=== PATIENT | female | born 1990 | race Caucasian/White ===

== ENCOUNTER 2016-09-07 22:19 | Emergency (ER) | payer BC, OTHER ==
[2016-09-07 22:38] VITALS: O2SAT 100
--- NOTE | 2016-09-07 22:46 | ED.PDOC ---
History of Present Illness - General Chief Complaint: Abdominal Pain Stated Complaint: abd pain Time Seen by Provider: 09/07/16 22:22 Source: patient Exam Limitations: no limitations - History of Present Illness Initial Comments: the patient is a 26-year-old female presenting to the emergency room secondary to lateral abdominal and periumbilical pain after grabbing her child and pulling whose misbehaving. The patient has had intermittent periumbilical pains over the last couple of years. On exam she does have a small periumbilical hernia. Abdominal exam shows no definite palpable masses. There is no rebound or peritoneal signs. She is not having any vaginal bleeding. There was no blood abdominal trauma. Timing/Duration: 4-6 hours Severity: mild Improving Factors: immobilization Worsening Factors: movement Associated Symptoms: denies symptoms Allergies/Adverse Reactions: Allergies NO KNOWN ALLERGY Allergy (Verified 02/11/16 20:07) Home Medications: Ambulatory Orders Implanon SC DAILY 09/30/15 Naproxen [Naprosyn] 500 mg PO BID PRN #15 tab 09/30/15 Phentermine HCl 37.5 mg PO DAILY 09/30/15 Mupirocin 2 % Oint [Bactroban Oint] 2 % EX BID #1 tube 01/07/16 Sulfamethoxazole-Trimethoprim [Bactrim Ds 800-160 mg] 1 tab PO BID #20 tab 01/06 Sulfa/Trimeth 800/160 (Ds) Tab [Bactrim DS Tab] 1 ea PO BID #14 tab 02/11/16 Review of Systems - Review of Systems Constitutional: States: no symptoms reported EENTM: States: no symptoms reported Respiratory: States: no symptoms reported Cardiology: States: no symptoms reported Gastrointestinal/Abdominal: States: abdominal pain Genitourinary: States: no symptoms reported Musculoskeletal: States: no symptoms reported Skin: States: no symptoms reported Neurological: States: no symptoms reported Endocrine: States: no symptoms reported All other Systems: No Change from Baseline Past Medical History (General) - Patient Medical History Hx Asthma: No Hx Hypertension: Yes Hx Diabetes: No Hx Gastroesophageal Reflux: No Hx Renal Disease: No Hx Cancer: No Hx Hepatitis C: No Hx MRSA: No Surgical History: no surgical history - Vaccination History Hx Tetanus, Diphtheria Vaccination: No Hx Influenza Vaccination: No Hx Pneumococcal Vaccination: No - Social History Hx Tobacco Use: No Hx Alcohol Use: No Hx Substance Use: Yes Hx Substance Use Treatment: No Hx Depression: No - Female History Patient is a Female of Child Bearing Age (10 -59 yrs old): Yes Hx Last Menstrual Period: 07/11/16 Patient : Yes - "think about 8weeks" Expected Date of Delivery:: 04/17/17 Hx Gestational Age: 8 Family Medical History - Family History Mother Family History: No Known Name: Mary Age (years): 45 Living Status: Still Living Hx Family Hypertension: Yes Hx Family;Other: heart problems. smoker Physical Exam - Physical Exam General Appearance: Alert, Comfortable, No apparent distress Eye Exam: bilateral normal Ears, Nose, Throat: hearing grossly normal Neck: non-tender, full range of motion Respiratory: no respiratory distress, no accessory muscle use Cardiovascular/Chest: normal peripheral pulses, no edema Gastrointestinal/Abdominal: normal bowel sounds, soft, other - palpable umbilical hernia. No palpable masses otherwise. No rebound or peritoneal signs. Rectal Exam: deferred Back Exam: normal inspection, no CVA tenderness, no vertebral tenderness Extremity: normal range of motion, non-tender, normal inspection, no pedal edema , normal capillary refill Neurologic: alert, normal mood/affect, oriented x 3 Skin Exam: normal color Comments: Vital Signs - 24 hr 09/07/16 22:30 Temperature 97.2 F L Pulse Rate [ 82 left] Respiratory 18 Rate Blood Pressure 135/84 [left] O2 Sat by Pulse 100 Oximetry Progress - Progress Progress: 09/07/16 22:46 the patient is a 26-year-old female presenting to the emergency room secondary to abdominal pain after straining. The patient does have an umbilical hernia that is fairly easily reduced. It does cause her some discomfort. She may yet need to have this repaired in the future. ER warnings are given for this. The patient also appears to have had a strain of the abdominal obliques on the left. She can expect to have some soreness for the next week or 2. Tylenol can be used for discomfort. ER warnings were given. Departure - Departure Clinical Impression: Umbilical hernia without obstruction and without gangrene Abdominal muscle strain Qualifiers: Encounter type: initial encounter Qualified Code(s): S39.011A - Strain of muscle, fascia and tendon of abdomen, initial encounter Disposition: Discharge to Home or Self Care Condition: Fair Departure Forms: ED Discharge - Pt. Copy, Patient Portal Self Enrollment Instructions: DI for Abdominal Pain-Adult Diet: regular diet Activity: increase activity as tolerated Referrals: TAMERA ROMO,ELIO Jackson [Primary Care Provider] - 1-2 Weeks Home Medications: Ambulatory Orders Implanon SC DAILY 09/30/15 Naproxen [Naprosyn] 500 mg PO BID PRN #15 tab 09/30/15 Phentermine HCl 37.5 mg PO DAILY 09/30/15 Mupirocin 2 % Oint [Bactroban Oint] 2 % EX BID #1 tube 01/07/16 Sulfamethoxazole-Trimethoprim [Bactrim Ds 800-160 mg] 1 tab PO BID #20 tab 01/06 Sulfa/Trimeth 800/160 (Ds) Tab [Bactrim DS Tab] 1 ea PO BID #14 tab 02/11/16 Additional Instructions: the patient is a 26-year-old female presenting to the emergency room secondary to abdominal pain after straining. The patient does have an umbilical hernia that is fairly easily reduced. It does cause her some discomfort. She may yet need to have this repaired in the future. ER warnings are given for this. The patient also appears to have had a strain of the abdominal obliques on the left. She can expect to have some soreness for the next week or 2. Tylenol can be used for discomfort. ER warnings were given.
[2016-09-07 22:57] VITALS: BP 131/85; TEMP 97.5
== END 2016-09-07 22:55 | disposition home or self-care (01) ==
LOC: ER 22:19
DX: O26.891 Other specified pregnancy related conditions, first trimester (principal); K42.9 Umbilical hernia without obstruction or gangrene; S39.011A Strain of muscle, fascia and tendon of abdomen, initial encounter; I10 Essential (primary) hypertension; Z79.899 Other long term (current) drug therapy; Z3A.08 8 weeks gestation of pregnancy; X50.9XXA Other and unspecified overexertion or strenuous movements or postures, initial encounter

== ENCOUNTER 2016-10-01 09:40 | Emergency (ER) | payer OTHER ==
[2016-10-01 09:56] VITALS: TEMP 97.6
--- NOTE | 2016-10-01 10:19 | ED.PDOC ---
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 The patient had a colposcopy done 2 days ago with biopsies performed. Silver nitrate was used as the hemostatic. she started having some spotting 24 hours later. She is approximately 11 weeks . no passage of any tissue. No cramping. She is too early for movement. Timing/Duration: 24 hours Severity: mild Improving Factors: nothing Worsening Factors: nothing Associated Symptoms: denies symptoms Allergies/Adverse Reactions: Allergies NO KNOWN ALLERGY Allergy (Verified 02/11/16 20:07) Home Medications: Ambulatory Orders Implanon SC DAILY 09/30/15 Naproxen [Naprosyn] 500 mg PO BID PRN #15 tab 09/30/15 Phentermine HCl 37.5 mg PO DAILY 09/30/15 Mupirocin 2 % Oint [Bactroban Oint] 2 % EX BID #1 tube 01/07/16 Sulfamethoxazole-Trimethoprim [Bactrim Ds 800-160 mg] 1 tab PO BID #20 tab 01/06 Sulfa/Trimeth 800/160 (Ds) Tab [Bactrim DS Tab] 1 ea PO BID #14 tab 02/11/16 Review of Systems - Review of Systems Constitutional: States: no symptoms reported EENTM: States: no symptoms reported Respiratory: States: no symptoms reported Cardiology: States: no symptoms reported Gastrointestinal/Abdominal: States: no symptoms reported Genitourinary: States: see HPI Musculoskeletal: States: no symptoms reported Skin: States: no symptoms reported Neurological: States: no symptoms reported Endocrine: States: no symptoms reported All other Systems: No Change from Baseline Past Medical History (General) - Patient Medical History Hx Seizures: Yes - silent seizures Hx Asthma: No Hx Hypertension: Yes Hx Diabetes: No Hx Gastroesophageal Reflux: No Hx Renal Disease: No Hx Cancer: No Hx Hepatitis C: No Hx MRSA: No - Vaccination History Hx Tetanus, Diphtheria Vaccination: No Hx Influenza Vaccination: No Hx Pneumococcal Vaccination: No - Social History Hx Tobacco Use: No Hx Alcohol Use: No Hx Substance Use: Yes Hx Substance Use Treatment: No Hx Depression: No - Female History Patient is a Female of Child Bearing Age (10 -59 yrs old): Yes Hx Last Menstrual Period: 07/11/16 Patient : Yes Expected Date of Delivery:: 04/22/17 Hx Gestational Age: 8 Family Medical History - Family History Mother Family History: No Known Name: Mary Age (years): 45 Living Status: Still Living Hx Family Hypertension: Yes Hx Family;Other: heart problems. smoker Physical Exam - Physical Exam General Appearance: Alert, Comfortable, No apparent distress Eye Exam: bilateral normal Ears, Nose, Throat: hearing grossly normal, normal ENT inspection, normal pharynx Neck: non-tender, full range of motion, supple Respiratory: no respiratory distress, no accessory muscle use Cardiovascular/Chest: normal peripheral pulses, no edema, other - regular rate Peripheral Pulses: radial,right: 2+, radial,left: 2+, dorsalis pedis,right: 2+, dorsalis pedis,left: 2+ Gastrointestinal/Abdominal: non tender, soft Rectal Exam: deferred, other - pelvic exam shows very small clots in the vaginal vault. The cervical os is closed. No evidence of any arterial or active bleeding at this time. Back Exam: normal inspection, no CVA tenderness, no vertebral tenderness Extremity: normal range of motion, non-tender, normal inspection, no pedal edema , normal capillary refill Skin Exam: normal color Comments: Vital Signs - 24 hr 10/01/16 09:54 Temperature 97.6 F Pulse Rate [ 92 H left brachial] Respiratory 16 Rate Blood Pressure 129/92 [left brachial] O2 Sat by Pulse 95 Oximetry Progress - Progress Progress: 10/01/16 10:20 the patient is a 26-year-old female at 11 weeks gestational age presenting with vaginal spotting after a cervical biopsy a few days ago. Cursory ultrasound performed by ma shows what appears to be an intact with a heart rate in the 150s and good movement with adequate fluid. Pelvic exam shows no evidence of arterial bleeding or dilation or thinning of the cervix. No further active management is anticipated at this time. Spotting should resolve within 48 hour. ER warnings are given for any worsening. She should give her sales & service associate a call on Sunday. Departure - Departure Clinical Impression: Bleeding of cervix ICD-10 Supporting Text: bleeding from procedure site fromcolposcopy with biopsies Disposition: Discharge to Home or Self Care Condition: Fair Departure Forms: ED Discharge - Pt. Copy, Patient Portal Self Enrollment Instructions: Biopsy Diet: regular diet Activity: other - Pelvic rest Referrals: TAMERA ROMO,ELIO Jackson [Primary Care Provider] - 1-2 Weeks Home Medications: Ambulatory Orders Implanon SC DAILY 09/30/15 Naproxen [Naprosyn] 500 mg PO BID PRN #15 tab 09/30/15 Phentermine HCl 37.5 mg PO DAILY 09/30/15 Mupirocin 2 % Oint [Bactroban Oint] 2 % EX BID #1 tube 01/07/16 Sulfamethoxazole-Trimethoprim [Bactrim Ds 800-160 mg] 1 tab PO BID #20 tab 01/06 Sulfa/Trimeth 800/160 (Ds) Tab [Bactrim DS Tab] 1 ea PO BID #14 tab 02/11/16 Additional Instructions: the patient is a 26-year-old female at 11 weeks gestational age presenting with vaginal spotting after a cervical biopsy a few days ago. Cursory ultrasound performed by ma shows what appears to be an intact with a heart rate in the 150s and good movement with adequate fluid. Pelvic exam shows no evidence of arterial bleeding or dilation or thinning of the cervix. No further active management is anticipated at this time. Spotting should resolve within 48 hour. ER warnings are given for any worsening. She should give her sales & service associate a call on Sunday.
[2016-10-01 10:54] VITALS: BP 128/88; O2SAT 96
== END 2016-10-01 10:40 | disposition home or self-care (01) ==
LOC: ER 09:40
DX: O20.8 Other hemorrhage in early pregnancy (principal); Z3A.11 11 weeks gestation of pregnancy; Z98.890 Other specified postprocedural states

== ENCOUNTER 2016-10-27 22:48 | Emergency (ER) | payer OTHER ==
[2016-10-27 23:17] VITALS: TEMP 91.7
--- NOTE | 2016-10-27 23:55 | ED.PDOC ---
History of Present Illness - General Chief Complaint: Respiratory Problem Stated Complaint: sore throat and cough Time Seen by Provider: 10/27/16 23:52 Source: patient, RN notes reviewed, Vital Signs reviewed Exam Limitations: no limitations - History of Present Illness Comments: Patient comes in with 3 days of cough and sore throat. Now her R ribs are hurting when she coughs. No fever or chills. Ears are burning. No SOB or difficulty breathing. Cough is dry. She is 15 weeks so she has only been using cough drops. Timing/Duration: constant - over the past 3 days Cough Quality/Degree: moderate, dry cough Possible Cause: unknown cause Improving Factors: nothing Worsening Factors: nothing Associated Symptoms: chest pain/soreness, cough, earache, sore throat Allergies/Adverse Reactions: Allergies NO KNOWN ALLERGY Allergy (Verified 02/11/16 20:07) Home Medications: Ambulatory Orders Implanon SC DAILY 09/30/15 RX: Naproxen [Naprosyn] 500 mg PO BID PRN #15 tab 09/30/15 RX: Phentermine HCl 37.5 mg PO DAILY 09/30/15 Mupirocin 2 % Oint [Bactroban Oint] 2 % EX BID #1 tube 01/07/16 Sulfamethoxazole-Trimethoprim [Bactrim Ds 800-160 mg] 1 tab PO BID #20 tab 01/06 Sulfa/Trimeth 800/160 (Ds) Tab [Bactrim DS Tab] 1 ea PO BID #14 tab 02/11/16 Review of Systems - Review of Systems Constitutional: States: no symptoms reported. Denies: chills, diaphoresis, fever, malaise EENTM: States: see HPI, ear pain, throat pain. Denies: nose congestion Respiratory: States: cough. Denies: short of breath, stridor, wheezing Cardiology: States: no symptoms reported Gastrointestinal/Abdominal: States: no symptoms reported Musculoskeletal: States: other - R rib pain with coughing Skin: States: no symptoms reported Neurological: States: no symptoms reported. Denies: headache All other Systems: No Change from Baseline Past Medical History (General) - Patient Medical History Hx Seizures: Yes - silent seizures Hx Asthma: No Hx Hypertension: Yes Hx Diabetes: No Hx Gastroesophageal Reflux: No Hx Renal Disease: No Hx Cancer: No Hx Hepatitis C: No Hx MRSA: No Surgical History: no surgical history - Vaccination History Hx Tetanus, Diphtheria Vaccination: No Hx Influenza Vaccination: No Hx Pneumococcal Vaccination: No - Social History Hx Tobacco Use: No Hx Alcohol Use: No Hx Substance Use: Yes Hx Substance Use Treatment: No Hx Depression: No - Female History Patient is a Female of Child Bearing Age (10 -59 yrs old): Yes Hx Last Menstrual Period: 07/16/16 Patient : Yes Expected Date of Delivery:: 03/26/17 Hx Gestational Age: 15 Family Medical History - Family History Mother Family History: No Known Name: Mary Age (years): 45 Living Status: Still Living Hx Family Hypertension: Yes Hx Family;Other: heart problems. smoker Physical Exam - Physical Exam General Appearance: Alert, Comfortable, No apparent distress, Well Developed, Well Groomed, Well Hydrated, Well Nourished ENT Exam: hearing grossly normal, TMs normal, pharyngeal erythema Neck: non-tender, full range of motion, supple, normal inspection Respiratory: lungs clear, normal breath sounds, no respiratory distress, no accessory muscle use Cardiovascular/Chest: regular rate, rhythm, no gallop, no murmur Extremity: normal range of motion, normal inspection Neurologic: alert, normal mood/affect, oriented x 3 Skin Exam: normal color, warm/dry Progress - Results/Orders Results/Orders: Laboratory Tests 10/27/16 23:30 Group A Strep DNA Negative Departure - Departure Clinical Impression: Upper respiratory infection Qualifiers: URI type: unspecified viral URI Qualified Code(s): J06.9 - Acute upper respiratory infection, unspecified; B97.89 - Other viral agents as the cause of diseases classified elsewhere Time of Disposition: 23:58 Disposition: Discharge to Home or Self Care Condition: Good Departure Forms: ED Discharge - Pt. Copy, Patient Portal Self Enrollment Instructions: DI for Viral Upper Respiratory Infection -- Adult Diet: resume usual diet Activity: increase activity as tolerated Referrals: TAMERA ROMO,ELIO Jackson [Primary Care Provider] - 1-2 Weeks Home Medications: Ambulatory Orders Implanon SC DAILY 09/30/15 RX: Naproxen [Naprosyn] 500 mg PO BID PRN #15 tab 09/30/15 RX: Phentermine HCl 37.5 mg PO DAILY 09/30/15 Mupirocin 2 % Oint [Bactroban Oint] 2 % EX BID #1 tube 01/07/16 Sulfamethoxazole-Trimethoprim [Bactrim Ds 800-160 mg] 1 tab PO BID #20 tab 01/06 Sulfa/Trimeth 800/160 (Ds) Tab [Bactrim DS Tab] 1 ea PO BID #14 tab 02/11/16 Additional Instructions: Recommend conservative treatment with OTC Mucinex, Delsym or Benadryl If not resolving in 2 weeks or worsening get rechecked.
[2016-10-28 00:05] VITALS: BP 131/94; O2SAT 96
== END 2016-10-28 00:05 | disposition home or self-care (01) ==
LOC: ER 22:48
DX: O99.89 Other specified diseases and conditions complicating pregnancy, childbirth and the puerperium (principal); J06.9 Acute upper respiratory infection, unspecified; O10.912 Unspecified pre-existing hypertension complicating pregnancy, second trimester; I10 Essential (primary) hypertension; R56.9 Unspecified convulsions; Z79.899 Other long term (current) drug therapy; Z3A.15 15 weeks gestation of pregnancy

== ENCOUNTER 2017-03-11 18:39 | Emergency (ER) | payer OTHER ==
[2017-03-11 19:13] VITALS: BP 133/86; TEMP 99
[2017-03-11] MEDS ORDERED: ACETAMINOPHEN W/COD #3 TAB 1 EA TAB PO ONE (19:22)
--- NOTE | 2017-03-11 19:25 | ED.PDOC ---
History of Present Illness - General Chief Complaint: Back Pain or Injury Stated Complaint: back pain Time Seen by Provider: 03/11/17 18:54 Source: patient, RN notes reviewed, Vital Signs reviewed Exam Limitations: no limitations - History of Present Illness Initial Comments: Patient comes in with c/o mid-back pain all day. She is 34 weeks . Tylenol is not helping her pain today. She will get some back pain off and on but this is the worst that it has been. No radiation of pain. No abdominal pain or contractions. Timing/Duration: 7-24 hours Quality/Severity: moderate, dullness Back Pain Location: T-spine - Lower aspect Back Pain Radiation: other - None Method of Injury/Prior Injury: other - 34 weeks Improving Factors: nothing Worsening Factors: movement Associated Symptoms: denies symptoms Allergies/Adverse Reactions: Allergies NO KNOWN ALLERGY Allergy (Verified 03/11/17 19:13) Home Medications: Ambulatory Orders Implanon SC DAILY 09/30/15 Naproxen [Naprosyn] 500 mg PO BID PRN #15 tab 09/30/15 Phentermine HCl 37.5 mg PO DAILY 09/30/15 Mupirocin 2 % Oint [Bactroban Oint] 2 % EX BID #1 tube 01/07/16 Sulfamethoxazole-Trimethoprim [Bactrim Ds 800-160 mg] 1 tab PO BID #20 tab 01/06 Sulfa/Trimeth 800/160 (Ds) Tab [Bactrim DS Tab] 1 ea PO BID #14 tab 02/11/16 Review of Systems - Review of Systems Constitutional: States: no symptoms reported Respiratory: States: no symptoms reported Cardiology: States: no symptoms reported Gastrointestinal/Abdominal: States: no symptoms reported Genitourinary: States: other - 34 weeks Musculoskeletal: States: back pain - mid-back Skin: States: no symptoms reported Neurological: States: no symptoms reported All other Systems: No Change from Baseline Past Medical History (General) - Patient Medical History Hx Seizures: Yes - silent seizures Hx Asthma: No Hx Hypertension: Yes Hx Diabetes: No Hx Gastroesophageal Reflux: No Hx Renal Disease: No Hx Cancer: No Hx Hepatitis C: No Hx MRSA: No Surgical History: no surgical history - Vaccination History Hx Tetanus, Diphtheria Vaccination: No Hx Influenza Vaccination: No Hx Pneumococcal Vaccination: No - Social History Hx Tobacco Use: No Hx Alcohol Use: No Hx Substance Use: Yes Hx Substance Use Treatment: No Hx Depression: No - Female History Patient is a Female of Child Bearing Age (10 -59 yrs old): Yes Hx Last Menstrual Period: 07/16/16 Patient : Yes Expected Date of Delivery:: 03/26/17 Hx Gestational Age: 34 Family Medical History - Family History Mother Family History: No Known Name: Mary Age (years): 45 Living Status: Still Living Hx Family Hypertension: Yes Hx Family;Other: heart problems. smoker Physical Exam - Physical Exam General Appearance: Alert, Comfortable, No apparent distress, Well Developed, Well Groomed, Well Hydrated, Well Nourished Cardiovascular/Respiratory: regular rate, rhythm, no M/R/G, normal breath sounds , no respiratory distress Gastrointestinal/Abdominal: non tender, soft, other - gravid Back Exam: vertebral tenderness - lower thoracic spine - mild Extremity Exam: no evidence of injury, normal range of motion Neurologic: no motor/sensory deficits, alert, normal mood/affect, oriented x 3 Skin Exam: normal color, warm/dry Comments: Vital Signs 03/11/17 19:07 Temperature 99.0 F Pulse Rate [ 112 H pulse ox] Respiratory 18 Rate Blood Pressure 133/86 [Left Arm] O2 Sat by Pulse 97 Oximetry Heart Tones: 156 Progress - Progress Progress: 03/11/17 19:28 Will give Tylenol #3 PO here and follow up with her OB tomorrow as scheduled for further management. Departure - Departure Clinical Impression: Back pain during Time of Disposition: 19:28 Disposition: Discharge to Home or Self Care Condition: Good Departure Forms: ED Discharge - Pt. Copy, Patient Portal Self Enrollment Instructions: Support Garment May Reduce Back Pain Discomfort During , Common Discomforts and Bodily Changes During Diet: resume usual diet Activity: increase activity as tolerated Referrals: Donovan Stevens MD [Primary Care Provider] - 1-2 Days Home Medications: Ambulatory Orders Implanon SC DAILY 09/30/15 Naproxen [Naprosyn] 500 mg PO BID PRN #15 tab 09/30/15 Phentermine HCl 37.5 mg PO DAILY 09/30/15 Mupirocin 2 % Oint [Bactroban Oint] 2 % EX BID #1 tube 01/07/16 Sulfamethoxazole-Trimethoprim [Bactrim Ds 800-160 mg] 1 tab PO BID #20 tab 01/06 Sulfa/Trimeth 800/160 (Ds) Tab [Bactrim DS Tab] 1 ea PO BID #14 tab 02/11/16
[2017-03-11 19:47] VITALS: O2SAT 99
== END 2017-03-11 19:48 | disposition home or self-care (01) ==
LOC: ER 18:39
DX: O26.893 Other specified pregnancy related conditions, third trimester (principal); M54.9 Dorsalgia, unspecified; O16.3 Unspecified maternal hypertension, third trimester; O99.353 Diseases of the nervous system complicating pregnancy, third trimester; G40.A09 Absence epileptic syndrome, not intractable, without status epilepticus; Z3A.34 34 weeks gestation of pregnancy

== ENCOUNTER → 2017-05-10 | Outpatient (CLI) | payer OTHER ==
--- NOTE | 2017-05-10 15:05 | US ---
EXAM DESCRIPTION: Abdomen,Complete: Ultrasound. CLINICAL HISTORY: CHRONIC VIRAL HEP C COMPARISON: None Available. TECHNIQUE: Transabdominal scannin-dimensional and Doppler modes. FINDINGS: The gallbladder is normal in size, shape, and echogenicity, with no intraluminal stones or sludge. No fluid around the gallbladder. Wall thickness normal. 2.3 mm. Common bile duct caliber 3.1 mm which is within normal limits. No stones in the visualized portion of the duct. Not tender with transducer pressure. The liver demonstrates normal echogenicity; contour of the liver capsule is smooth where seen. No fluid around the liver. Intrahepatic biliary ducts are non-dilated. Craniocaudal dimension in the mid-clavicular axis is 13.8 cm. Pancreas head, body, and tail normal in size and echogenicity. Pancreatic duct is not dilated. Normal Doppler vascularity in the titi hepatis. Abdominal aorta diameter proximal 1.8 cm. Mid 1.4 cm. Distal 1.5 cm. IVC visualized; normal caliber. Spleen normal echogenicity; long axis measurement is 14.5 cm. No fluid in the spleno-renal fossa. Right kidney measures 11.5 x 6.4 x 4.2 cm ; normal mid renal cortical thickness. Echogenicity normal with no hydronephrosis, no large calcifications, and no perinephric fluid. Contour smooth. Vascularity normal. Ureter not visualized. Left kidney measures 11.7 x 5.4 x 4.8 cm ; normal mid renal cortical thickness. Echogenicity normal with no hydronephrosis, no large calcifications, and no perinephric fluid. Contour smooth. Vascularity normal. Ureter not visualized. IMPRESSION: 1. Spleen borderline enlarged. Normal echogenicity. No fluid around the spleen. 2. Normal size and echogenicity of the liver and intrahepatic ducts. No ascites. Normal ultrasound of the gallbladder and common bile duct. Normal ultrasound of the pancreas. 3. Normal ultrasound of the bilateral kidneys. Electronically signed by: Brent Rashid MD 05/10/2017 3:04 PM OUTCOMES MANAGER
== END | disposition home or self-care (01) ==
LOC: US 05-08 13:48
PROVIDERS: ATTEND Pediatrics Pediatric Gastroenterology
DX: B18.2 Chronic viral hepatitis C (principal)

== ENCOUNTER 2017-10-13 23:01 | Emergency (ER) | payer SELFPAY ==
[2017-10-13 23:19] VITALS: TEMP 97.1
[2017-10-13] MEDS ORDERED: KETOROLAC TROMETHAMINE INJ 30 MG/ML VIAL IM ONE (23:30)
[2017-10-13] MEDS ORDERED: ACETAMINOPHEN-CAFF-BUTALBITAL 1 EA TAB PO ONE (23:30)
[2017-10-13] MEDS ORDERED: predniSONE 20 MG TAB PO ONE (23:30)
--- NOTE | 2017-10-14 00:01 | RAD ---
EXAM: Three view(s) of the left knee. INDICATION: Pain. COMPARISON: None. FINDINGS: No acute fracture or dislocation. No large soft tissue swelling. IMPRESSION: 1. No acute fracture. Electronically signed by: Jermain Diaz MD 10/14/2017 12:00 AM CDT Workstation: [id number]
--- NOTE | 2017-10-14 00:17 | ED.PDOC ---
History of Present Illness - General Chief Complaint: Lower Extremity Injury Stated Complaint: left knee pain Time Seen by Provider: 10/13/17 23:30 Source: patient Exam Limitations: no limitations - History of Present Illness Initial Comments: the patient is a 27-year-old female presenting to the emergency room secondary to pain in her left knee that has been present and progressive for the last week. Pain seems to be worse over the anserine bursa and the medial collateral ligament. No locking or popping. No giving out. No history of trauma. No previous problems with the knee. She also has some fullness posteriorly. No palpable cords. No calf pain. No history of any DVT. No obvious outstanding risk for a DVT. She is oxygenating well. No shortness of breath. The knee itself shows some mild swelling over the areain question. No evidence of any overt infection. No history of any gout. Timing/Duration: 1 week Severity: moderate Improving Factors: nothing Worsening Factors: nothing Associated Symptoms: denies symptoms Allergies/Adverse Reactions: Allergies NO KNOWN ALLERGY Allergy (Verified 10/13/17 23:19) Home Medications: Ambulatory Orders Implanon SC DAILY 09/30/15 Naproxen [Naprosyn] 500 mg PO BID PRN #15 tab 09/30/15 Phentermine HCl 37.5 mg PO DAILY 09/30/15 Mupirocin 2 % Oint [Bactroban Oint] 2 % EX BID #1 tube 01/07/16 Sulfamethoxazole-Trimethoprim [Bactrim Ds 800-160 mg] 1 tab PO BID #20 tab 01/06 Sulfa/Trimeth 800/160 (Ds) Tab [Bactrim DS Tab] 1 ea PO BID #14 tab 02/11/16 Tramadol HCl 50 mg PO Q8HR PRN #14 tab 10/14/17 predniSONE [Prednisone] 20 mg PO DAILY #5 tab 10/14/17 Review of Systems - Review of Systems Constitutional: States: no symptoms reported EENTM: States: no symptoms reported Respiratory: States: no symptoms reported Cardiology: States: no symptoms reported Gastrointestinal/Abdominal: States: no symptoms reported Genitourinary: States: no symptoms reported Musculoskeletal: States: see HPI Skin: States: no symptoms reported Neurological: States: no symptoms reported Endocrine: States: no symptoms reported All other Systems: No Change from Baseline Past Medical History (General) - Patient Medical History Hx Seizures: Yes - silent seizures Hx Stroke: No Hx Dementia: No Hx Asthma: No Hx of COPD: No Hx Cardiac Disorders: No Hx Congestive Heart Failure: No Hx Hypertension: Yes Hx Thyroid Disease: No Hx Diabetes: No Hx Gastroesophageal Reflux: No Hx Renal Disease: No Hx Cancer: No Hx of HIV: No Hx Hepatitis C: No Hx MRSA: No - Vaccination History Hx Tetanus, Diphtheria Vaccination: No Hx Influenza Vaccination: No Hx Pneumococcal Vaccination: No - Social History Hx Tobacco Use: No Hx Alcohol Use: No Hx Substance Use: Yes Hx Substance Use Treatment: No Hx Depression: No - Female History Hx Last Menstrual Period: 07/16/16 Patient : Yes Expected Date of Delivery:: 03/26/17 Hx Gestational Age: 34 Family Medical History - Family History Mother Family History: No Known Name: Mary Age (years): 45 Living Status: Still Living Hx Family Hypertension: Yes Hx Family;Other: heart problems. smoker Physical Exam - Physical Exam General Appearance: Alert, Comfortable, No apparent distress Eye Exam: bilateral normal Ears, Nose, Throat: hearing grossly normal Neck: full range of motion Respiratory: no respiratory distress, no accessory muscle use Cardiovascular/Chest: normal peripheral pulses, regular rate, rhythm, no edema Peripheral Pulses: radial,right: 2+, radial,left: 2+, dorsalis pedis,right: 2+, dorsalis pedis,left: 2+, posterior tibialis,right: 2+, posterior tibialis,left: 2+ Gastrointestinal/Abdominal: non tender, soft Rectal Exam: deferred Back Exam: no CVA tenderness, no vertebral tenderness Extremity: normal range of motion, no pedal edema, no calf tenderness, normal capillary refill, other - see history of present illness. Neurologic: no motor/sensory deficits, alert, normal mood/affect, oriented x 3 Skin Exam: normal color Comments: Vital Signs - 24 hr 10/13/17 23:15 Temperature 97.1 F L Pulse Rate [ 88 monitor] Respiratory 18 Rate Blood Pressure 126/84 [Left Arm] O2 Sat by Pulse 99 Oximetry Progress - Progress Progress: 10/14/17 00:19 the patient is a 27-year-old female presenting with left knee pain has been progressive over the last week. She has an anserine bursitis and tenderness to palpation over the medial collateral ligament. X-ray of the knee shows no evidence of dislocation or fracture. The patient is going to be placed on prednisone for the next 5 days as an anti-inflammatory. Additionally she'll be written for some tramadol for pain control. She can take over-the- counter anti-inflammatory such as Aleve or ibuprofen as well. Topical heat may help. It is possible the patient may be developing a Vasquez's cyst. If she continues to have a little bit of pain posteriorly in the knee over the coming weeks then she should see orthopedics for a further evaluation and intervention is necessary. There is no obvious instability of the knee at this time. The patient should plan on following up with her primary care doctor later this week. ER warnings were given. Departure - Departure Clinical Impression: Anserine bursitis Disposition: Discharge to Home or Self Care Condition: Fair Departure Forms: ED Discharge - Pt. Copy, Patient Portal Self Enrollment Instructions: DI for Leg Pain Diet: regular diet Activity: increase activity as tolerated Referrals: Donovan Stevens MD [Primary Care Provider] - 1-2 Weeks Prescriptions: Tramadol HCl 50 mg PO Q8HR PRN #14 tab PRN Reason: Moderate Pain predniSONE [Prednisone] 20 mg PO DAILY #5 tab Home Medications: Ambulatory Orders Implanon SC DAILY 09/30/15 Naproxen [Naprosyn] 500 mg PO BID PRN #15 tab 09/30/15 Phentermine HCl 37.5 mg PO DAILY 09/30/15 Mupirocin 2 % Oint [Bactroban Oint] 2 % EX BID #1 tube 01/07/16 Sulfamethoxazole-Trimethoprim [Bactrim Ds 800-160 mg] 1 tab PO BID #20 tab 01/06 Sulfa/Trimeth 800/160 (Ds) Tab [Bactrim DS Tab] 1 ea PO BID #14 tab 02/11/16 Tramadol HCl 50 mg PO Q8HR PRN #14 tab 10/14/17 predniSONE [Prednisone] 20 mg PO DAILY #5 tab 10/14/17 Additional Instructions: the patient is a 27-year-old female presenting with left knee pain has been progressive over the last week. She has an anserine bursitis and tenderness to palpation over the medial collateral ligament. X-ray of the knee shows no evidence of dislocation or fracture. The patient is going to be placed on prednisone for the next 5 days as an anti-inflammatory. Additionally she'll be written for some tramadol for pain control. She can take over-the- counter anti-inflammatory such as Aleve or ibuprofen as well. Topical heat may help. It is possible the patient may be developing a Vasquez's cyst. If she continues to have a little bit of pain posteriorly in the knee over the coming weeks then she should see orthopedics for a further evaluation and intervention is necessary. There is no obvious instability of the knee at this time. The patient should plan on following up with her primary care doctor later this week. ER warnings were given.
[2017-10-14 00:44] VITALS: BP 118/82; O2SAT 100
== END 2017-10-14 00:30 | disposition home or self-care (01) ==
LOC: ER 23:01
DX: M71.562 Other bursitis, not elsewhere classified, left knee (principal); I10 Essential (primary) hypertension; G40.802 Other epilepsy, not intractable, without status epilepticus
CPT/HCPCS: 73560; J1885; J7512

== ENCOUNTER 2017-11-04 22:18 | Emergency (ER) | payer SELFPAY ==
[2017-11-04 22:34] VITALS: TEMP 98.4
[2017-11-04] MEDS: KETOROLAC TROMETHAMINE INJ 30 MG/ML VIAL IM ONE (22:38)
[2017-11-04] MEDS: predniSONE 20 MG TAB PO ONE (22:39)
[2017-11-04] MEDS: diazePAM 5 MG TAB PO ONE (22:51)
[2017-11-04] MEDS ORDERED: ONDANSETRON ODT 8 MG TAB ONE (23:12)
[2017-11-04] MEDS: ONDANSETRON ODT 8 MG TAB SL ONE (23:13)
[2017-11-04] MEDS: SODIUM CHLORIDE 0.9% 1000ML 1,000 ML IVS ONE (23:37)
[2017-11-05] MEDS: HYDROcodone 7.5MG/APAP 325MG 1 EA TAB PO ONE (00:31)
--- NOTE | 2017-11-05 01:21 | ED.PDOC ---
History of Present Illness - General Chief Complaint: Headache Stated Complaint: headache x's 2 days Time Seen by Provider: 11/04/17 22:22 Source: patient Exam Limitations: no limitations - History of Present Illness Initial Comments: the patient is a 27-year-old female presenting to the emergency room secondary to a headache that is been going on for about 48 hours. Today she is starting to have some nausea along with some auto and phonophobia area but no fever. No altered mental status. No fever. No runny nose. No syncope or near syncope. 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 Clinical exam shows significant spasm of the trapezius muscle on the right extending down from the scalp to approximately T3 and extending about group home up to the point of the shoulder there is no midline tenderness and there is no pain on the left she does have some pain in the right ear area but the ear canal is clear. No meningeal signs. Timing/Duration: 24 hours Severity: moderate Improving Factors: nothing Worsening Factors: nothing Associated Symptoms: malaise, nausea/vomiting Allergies/Adverse Reactions: Allergies NO KNOWN ALLERGY Allergy (Verified 11/04/17 22:33) Home Medications: Ambulatory Orders Implanon SC DAILY 09/30/15 Naproxen [Naprosyn] 500 mg PO BID PRN #15 tab 09/30/15 Phentermine HCl 37.5 mg PO DAILY 09/30/15 Mupirocin 2 % Oint [Bactroban Oint] 2 % EX BID #1 tube 01/07/16 Sulfamethoxazole-Trimethoprim [Bactrim Ds 800-160 mg] 1 tab PO BID #20 tab 01/06 Sulfa/Trimeth 800/160 (Ds) Tab [Bactrim DS Tab] 1 ea PO BID #14 tab 02/11/16 Tramadol HCl 50 mg PO Q8HR PRN #14 tab 10/14/17 predniSONE [Prednisone] 20 mg PO DAILY #5 tab 10/14/17 Ntouxrxbunfpx-Yesx-Stdsebeyfu [Fioricet] 1 ea PO Q8H PRN #21 tab 11/05/17 Cyclobenzaprine HCl [Flexeril] 5 mg PO TID PRN #30 tab 11/05/17 predniSONE [Prednisone] 20 mg PO DAILY #3 tab 11/05/17 Review of Systems - Review of Systems Constitutional: States: malaise EENTM: States: no symptoms reported Respiratory: States: no symptoms reported Cardiology: States: no symptoms reported Gastrointestinal/Abdominal: States: nausea Genitourinary: States: no symptoms reported Musculoskeletal: States: neck pain Skin: States: no symptoms reported Neurological: States: anxiety, headache Endocrine: States: no symptoms reported All other Systems: No Change from Baseline Past Medical History (General) - Patient Medical History Hx Seizures: Yes - silent seizures Hx Stroke: No Hx Dementia: No Hx Asthma: No Hx of COPD: No Hx Cardiac Disorders: No Hx Congestive Heart Failure: No Hx Hypertension: Yes - during Hx Thyroid Disease: No Hx Diabetes: No Hx Gastroesophageal Reflux: No Hx Renal Disease: No Hx Cancer: No Hx of HIV: No Hx Hepatitis C: No Hx MRSA: No - Vaccination History Hx Tetanus, Diphtheria Vaccination: No Hx Influenza Vaccination: No Hx Pneumococcal Vaccination: No - Social History Hx Tobacco Use: No Hx Alcohol Use: No Hx Substance Use: Yes Hx Substance Use Treatment: No Hx Depression: No - Female History Hx Last Menstrual Period: 07/16/16 Patient : Yes Expected Date of Delivery:: 03/26/17 Hx Gestational Age: 34 Family Medical History - Family History Mother Family History: No Known Name: Mary Age (years): 45 Living Status: Still Living Hx Family Hypertension: Yes Hx Family;Other: heart problems. smoker Physical Exam - Physical Exam General Appearance: Alert, No apparent distress Eye Exam: bilateral normal Ears, Nose, Throat: hearing grossly normal, normal ENT inspection Neck: full range of motion, other - see history of present illness Respiratory: lungs clear, normal breath sounds, no respiratory distress, no accessory muscle use Cardiovascular/Chest: normal peripheral pulses, regular rate, rhythm, no edema Peripheral Pulses: radial,right: 2+, radial,left: 2+, dorsalis pedis,right: 2+, dorsalis pedis,left: 2+ Gastrointestinal/Abdominal: non tender, soft Rectal Exam: deferred Back Exam: normal inspection, no CVA tenderness, no vertebral tenderness Extremity: non-tender, normal inspection, no pedal edema, normal capillary refill 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 She was given some IV fluids here along with some pain medications and a muscle relaxer as well as a dose of prednisone. The patient is going to be written for Flexeril for as needed use along with some Fioricet for as needed use for the next couple of days. She will additionally be written for prednisone 20 mg daily for the next 3 days. She does need to use a heat pad and do stretching exercises for her trapezius muscle. ER warnings were given. She should follow up with her primary care doctor in 3-4 days. Departure - Departure Clinical Impression: Tension headache, Trapezius muscle spasm Disposition: Discharge to Home or Self Care Condition: Fair Departure Forms: ED Discharge - Pt. Copy, Patient Portal Self Enrollment Diet: regular diet Activity: increase activity as tolerated Referrals: TAMERA ROMO,ELIO Jakcson [Primary Care Provider] - 1-5 Days Prescriptions: Pxtxdgjldcedj-Yitc-Ftvbmnzaxi [Fioricet] 1 ea PO Q8H PRN #21 tab PRN Reason: Pain Cyclobenzaprine HCl [Flexeril] 5 mg PO TID PRN #30 tab PRN Reason: Muscle Spasms predniSONE [Prednisone] 20 mg PO DAILY #3 tab Home Medications: Ambulatory Orders Implanon SC DAILY 09/30/15 Naproxen [Naprosyn] 500 mg PO BID PRN #15 tab 09/30/15 Phentermine HCl 37.5 mg PO DAILY 09/30/15 Mupirocin 2 % Oint [Bactroban Oint] 2 % EX BID #1 tube 01/07/16 Sulfamethoxazole-Trimethoprim [Bactrim Ds 800-160 mg] 1 tab PO BID #20 tab 01/06 Sulfa/Trimeth 800/160 (Ds) Tab [Bactrim DS Tab] 1 ea PO BID #14 tab 02/11/16 Tramadol HCl 50 mg PO Q8HR PRN #14 tab 10/14/17 predniSONE [Prednisone] 20 mg PO DAILY #5 tab 10/14/17 Guxnblmosujkf-Zqll-Teeyhiynxq [Fioricet] 1 ea PO Q8H PRN #21 tab 11/05/17 Cyclobenzaprine HCl [Flexeril] 5 mg PO TID PRN #30 tab 11/05/17 predniSONE [Prednisone] 20 mg PO DAILY #3 tab 11/05/17 Additional Instructions: the patient is a 27-year-old female presenting to the emergency room secondary to a tension headache that has been worsening over the last 2 days secondary to a right sided trapezius spasm. She was given some IV fluids here along with some pain medications and a muscle relaxer as well as a dose of prednisone. The patient is going to be written for Flexeril for as needed use along with some Fioricet for as needed use for the next couple of days. She will additionally be written for prednisone 20 mg daily for the next 3 days. She does need to use a heat pad and do stretching exercises for her trapezius muscle. ER warnings were given. She should follow up with her primary care doctor in 3-4 days.
[2017-11-05 01:41] VITALS: BP 139/80; O2SAT 100
== END 2017-11-05 01:42 | disposition home or self-care (01) ==
LOC: ER 22:18
DX: G44.209 Tension-type headache, unspecified, not intractable (principal); M62.838 Other muscle spasm
CPT/HCPCS: J1885; J7030; J7512

== ENCOUNTER 2018-06-11 19:33 | Emergency (ER) | payer SELFPAY ==
[2018-06-11] MEDS ORDERED: CHLORHEXIDINE GLUCONATE 4 % 15 ML UD TOP ONE ×2 (20:26→22:11)
[2018-06-11 20:38] VITALS: TEMP 98.1
[2018-06-11] MEDS ORDERED: LIDOCAINE 1% 10 ML VIAL INJ ONE (21:40)
[2018-06-11] MEDS ORDERED: NEOMYCIN-BACITRACIN-POLYMYXIN 0.9 GM UD TOP ONE (22:43)
--- NOTE | 2018-06-11 22:43 | ED.PDOC ---
History of Present Illness - General Chief Complaint: Laceration Stated Complaint: left thumb laceration Time Seen by Provider: 06/11/18 22:10 Source: patient Exam Limitations: no limitations - History of Present Illness Initial Comments: WAS CUTTING A POTATO. Timing/Duration: just prior to arrival Severity: moderate Location: hands Improving Factors: nothing Worsening Factors: movement Associated Symptoms: denies symptoms Allergies/Adverse Reactions: Allergies NO KNOWN ALLERGY Allergy (Verified 11/04/17 22:33) Home Medications: Ambulatory Orders Implanon SC DAILY 09/30/15 Naproxen [Naprosyn] 500 mg PO BID PRN #15 tab 09/30/15 Phentermine HCl 37.5 mg PO DAILY 09/30/15 Mupirocin 2 % Oint [Bactroban Oint] 2 % EX BID #1 tube 01/07/16 Sulfamethoxazole-Trimethoprim [Bactrim Ds 800-160 mg] 1 tab PO BID #20 tab 01/07/16 Sulfa/Trimeth 800/160 (Ds) Tab [Bactrim DS Tab] 1 ea PO BID #14 tab 02/11/16 Tramadol HCl 50 mg PO Q8HR PRN #14 tab 10/14/17 predniSONE [Prednisone] 20 mg PO DAILY #5 tab 10/14/17 Gimsmyrtklidi-Tfgy-Jurdudhojl [Fioricet] 1 ea PO Q8H PRN #21 tab 11/05/17 Cyclobenzaprine HCl [Flexeril] 5 mg PO TID PRN #30 tab 11/05/17 predniSONE [Prednisone] 20 mg PO DAILY #3 tab 11/05/17 Review of Systems - Review of Systems Constitutional: States: no symptoms reported EENTM: States: no symptoms reported Respiratory: States: no symptoms reported Cardiology: States: no symptoms reported Gastrointestinal/Abdominal: States: no symptoms reported Genitourinary: States: no symptoms reported Musculoskeletal: States: no symptoms reported Skin: States: see HPI, lesions Neurological: States: no symptoms reported Endocrine: States: no symptoms reported All other Systems: Reviewed and Negative Past Medical History (General) - Patient Medical History Hx Seizures: Yes - silent seizures Hx Stroke: No Hx Dementia: No Hx Asthma: No Hx of COPD: No Hx Cardiac Disorders: No Hx Congestive Heart Failure: No Hx Hypertension: Yes - during Hx Thyroid Disease: No Hx Diabetes: No Hx Gastroesophageal Reflux: No Hx Renal Disease: No Hx Cancer: No Hx of HIV: No Hx Hepatitis C: No Hx MRSA: No - Vaccination History Hx Tetanus, Diphtheria Vaccination: No Hx Influenza Vaccination: No Hx Pneumococcal Vaccination: No - Social History Hx Tobacco Use: No Hx Alcohol Use: No Hx Substance Use: Yes Hx Substance Use Treatment: No Hx Depression: No - Female History Hx Last Menstrual Period: 07/16/16 Patient : Yes Expected Date of Delivery:: 03/26/17 Hx Gestational Age: 34 Family Medical History - Family History Mother Family History: No Known Name: Mary Age (years): 45 Living Status: Still Living Hx Family Hypertension: Yes Hx Family;Other: heart problems. 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 Skin Problem Location: upper extremities Skin Character: other - laceration Lymphatic: no adenopathy Procedures - Laceration/Wound Repair Left Distal Volar Finger Wound Length (cm): 2.8 Wound's Depth, Shape: superficial, flap - CURVILINEAR FLAP Wound Explored: no foreign body removed Irrigated w/ Saline (cc's): 250 Betadine Prep?: Yes Anesthesia: 1% Lidocaine Volume Anesthetic (cc's): 10 Wound Debrided: minimal Wound Repaired With: sutures Suture Size/Type: 3:0, prolene Number of Sutures: 1 - UNINTERRUPTED Layer Closure?: No Sterile Dressing Applied?: Yes Departure - Departure Clinical Impression: Pain of left thumb Laceration of thumb Qualifiers: Encounter type: initial encounter Damage to nail status: without damage Foreign body presence: without foreign body Laterality: left Qualified Code(s): S61.012A - Laceration without foreign body of left thumb without damage to nail, initial encounter Disposition: Discharge to Home or Self Care Condition: Good Departure Forms: ED Discharge - Pt. Copy, Patient Portal Self Enrollment Diet: resume usual diet Activity: increase activity as tolerated Referrals: TAMERA ROMO,ELIO Jackson [Primary Care Provider] - 1-2 Weeks Home Medications: Ambulatory Orders Implanon SC DAILY 09/30/15 Naproxen [Naprosyn] 500 mg PO BID PRN #15 tab 09/30/15 Phentermine HCl 37.5 mg PO DAILY 09/30/15 Mupirocin 2 % Oint [Bactroban Oint] 2 % EX BID #1 tube 01/07/16 Sulfamethoxazole-Trimethoprim [Bactrim Ds 800-160 mg] 1 tab PO BID #20 tab 01/07/16 Sulfa/Trimeth 800/160 (Ds) Tab [Bactrim DS Tab] 1 ea PO BID #14 tab 02/11/16 Tramadol HCl 50 mg PO Q8HR PRN #14 tab 10/14/17 predniSONE [Prednisone] 20 mg PO DAILY #5 tab 10/14/17 Ulbvfdwsynglr-Bije-Hnplxbzbun [Fioricet] 1 ea PO Q8H PRN #21 tab 11/05/17 Cyclobenzaprine HCl [Flexeril] 5 mg PO TID PRN #30 tab 11/05/17 predniSONE [Prednisone] 20 mg PO DAILY #3 tab 11/05/17 Additional Instructions: Twice per day, please clean with soap and water, apply antibiotic ointment, and cover with a bandaid until healed. Please return or see your doctor to remove the sutures in 12-14 days.
[2018-06-11] MEDS ORDERED: cloNIDine HCL 0.1 MG TAB ONE (22:56)
[2018-06-11] MEDS ORDERED: cloNIDine HCL 0.1 MG TAB PO ONE (22:56)
[2018-06-11 23:40] VITALS: BP 142/87; O2SAT 100
== END 2018-06-11 23:40 | disposition home or self-care (01) ==
LOC: ER 19:33
DX: S61.012A Laceration without foreign body of left thumb without damage to nail, initial encounter (principal); W45.8XXA Other foreign body or object entering through skin, initial encounter; Y92.9 Unspecified place or not applicable; Y93.G1 Activity, food preparation and clean up

== ENCOUNTER 2018-11-25 17:36 | Emergency (ER) | payer SELFPAY ==
[2018-11-25] MEDS ORDERED: AMOXICILLIN & POT CLAVULANATE 875 MG TAB PO ONE (17:45)
[2018-11-25 17:49] VITALS: BP 144/85; TEMP 98.4; O2SAT 99
--- NOTE | 2018-11-25 17:59 | RAD ---
EXAM DESCRIPTION: Hand,Right 2 Views CLINICAL HISTORY: pain lateral hand after punch COMPARISON: None. TECHNIQUE: 2 views right FINDINGS: I see no bone joint or soft tissue abnormality. IMPRESSION: Normal right hand. Electronically signed by: Yan Ludwig MD 11/25/2018 5:56 PM CDT
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
== END 2018-11-25 18:25 | disposition home or self-care (01) ==
LOC: ER 17:36
DX: L03.113 Cellulitis of right upper limb (principal); S63.91XA Sprain of unspecified part of right wrist and hand, initial encounter; S61.411A Laceration without foreign body of right hand, initial encounter; Y04.0XXA Assault by unarmed brawl or fight, initial encounter; Y92.9 Unspecified place or not applicable

== ENCOUNTER 2019-04-08 21:20 | Emergency (ER) | payer SELFPAY ==
[2019-04-08] MEDS ORDERED: KETOROLAC TROMETHAMINE INJ 30 MG/ML VIAL IM ONE (21:33)
[2019-04-08] MEDS ORDERED: CYCLOBENZAPRINE HCL 10 MG TAB PO ONE (21:34)
--- NOTE | 2019-04-08 21:36 | ED.PDOC ---
History of Present Illness - General Chief Complaint: Neck Injury/Pain Stated Complaint: neck pain Time Seen by Provider: 04/08/19 21:33 - History of Present Illness Initial Comments: this is 29 year female with no medical problems patient presents with upper back and neck pain for the past 3 days, no trauma but patient tends to sleep laying on her right side, and this is the site of the pain. no fever, no chill, no rigidity Allergies/Adverse Reactions: Allergies NO KNOWN ALLERGY Allergy (Verified 11/04/17 22:33) Home Medications: Ambulatory Orders Amoxicillin & Pot Clavulanate [Augmentin Tab] 875 mg PO BID #10 tab 11/25/18 Acetaminophen W/ Codeine [Tylenol W/ CODEINE #3] 1 ea PO Q6HRS 4 Days #20 04/08/19 Cyclobenzaprine HCl [Flexeril] 10 mg PO Q6HR 4 Days #20 tab 04/08/19 Review of Systems - Review of Systems Constitutional: States: no symptoms reported EENTM: States: no symptoms reported Respiratory: States: no symptoms reported Cardiology: States: no symptoms reported Gastrointestinal/Abdominal: States: no symptoms reported Genitourinary: States: no symptoms reported Musculoskeletal: States: back pain, neck pain Skin: States: no symptoms reported, see HPI, change in color Neurological: States: no symptoms reported Endocrine: States: no symptoms reported Hematologic/Lymphatic: States: no symptoms reported Past Medical History (General) - Patient Medical History Hx Seizures: Yes - silent seizures Hx Stroke: No Hx Dementia: No Hx Asthma: No Hx of COPD: No Hx Cardiac Disorders: No Hx Congestive Heart Failure: No Hx Hypertension: Yes - during Hx Thyroid Disease: No Hx Diabetes: No Hx Gastroesophageal Reflux: No Hx Renal Disease: No Hx Cancer: No Hx of HIV: No Hx Hepatitis C: No Hx MRSA: No - Vaccination History Hx Tetanus, Diphtheria Vaccination: No Hx Influenza Vaccination: No Hx Pneumococcal Vaccination: No - Social History Hx Tobacco Use: No Hx Alcohol Use: No Hx Substance Use: Yes Hx Substance Use Treatment: No Hx Depression: No - Female History Hx Last Menstrual Period: 07/16/16 Patient : Yes Expected Date of Delivery:: 03/26/17 Hx Gestational Age: 34 Family Medical History - Family History Mother Family History: No Known Name: Mary Age (years): 45 Living Status: Still Living Hx Family Hypertension: Yes Hx Family;Other: heart problems. 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 patient doesnt appear toxic. patient will be discharge home with tylenol #3 and flexeril. Return to the er if any fever, chills nuchal rigidity. Alternate between Ice and warm Departure - Departure Clinical Impression: Muscle spasm Disposition: Discharge to Home or Self Care Departure Forms: ED Discharge - Pt. Copy, Patient Portal Self Enrollment Instructions: DI for Neck Pain, DI for Cervical Muscle Strain, Muscle Spasms (DC) Referrals: TAMERA ROMO,ELIO Jackson [Primary Care Provider] - 1-2 Weeks Prescriptions: Acetaminophen W/ Codeine [Tylenol W/ CODEINE #3] 1 ea PO Q6HRS 4 Days #20 Cyclobenzaprine HCl [Flexeril] 10 mg PO Q6HR 4 Days #20 tab Home Medications: Ambulatory Orders Amoxicillin & Pot Clavulanate [Augmentin Tab] 875 mg PO BID #10 tab 11/25/18 Acetaminophen W/ Codeine [Tylenol W/ CODEINE #3] 1 ea PO Q6HRS 4 Days #20 04/08/19 Cyclobenzaprine HCl [Flexeril] 10 mg PO Q6HR 4 Days #20 tab 04/08/19 Additional Instructions: alternate between ice and warm, return to the er if fever, chills, neck pain, nuchal rigidity or tingling sensation in the upper extremities
[2019-04-08 21:38] VITALS: O2SAT 99
[2019-04-08 22:14] VITALS: BP 160/98; TEMP 98.2
== END 2019-04-08 21:59 | disposition home or self-care (01) ==
LOC: ER 21:20
DX: M62.838 Other muscle spasm (principal)

== ENCOUNTER 2020-02-10 21:27 | Emergency (ER) | payer SELFPAY ==
[2020-02-10 22:00] VITALS: TEMP 97.1
[2020-02-10] MEDS ORDERED: IPRATROPIUM/ALBUTEROL 3 ML VIAL NEB ONE (22:14)
[2020-02-10] MEDS ORDERED: cloNIDine HCL 0.1 MG TAB PO ONE (22:15)
--- NOTE | 2020-02-10 22:16 | ED.PDOC ---
History of Present Illness - General Chief Complaint: Respiratory Problem Stated Complaint: sob, cough and congestion Time Seen by Provider: 02/10/20 22:02 Source: patient Exam Limitations: no limitations - History of Present Illness Initial Comments: WORKS AT [employer]. 2 D AGO, STARTED HAVING COUGH AND CHEST CONGESTION. YESTERDAY, DEVELOPED SOB, ALONG WITH COUGH AND CONGESTION. COVID TEST YESTERDAY WAS NEG. BP IN ER 164/116. PT STATES WAS RX'D PROPRANOLOL FOR HTN FROM URGENT CARE BUT HAS BEEN OFF BP MEDS FOR 1 MONTH. DOES NOT HAVE A PCP. SMOKES 1/2 PPD. Timing/Duration: getting worse Severity: moderate Activities at Onset: none Possible Cause: unknown cause Improving Factors: nothing Worsening Factors: nothing Associated Symptoms: cough Respiratory Risk Factors: no cause identified Allergies/Adverse Reactions: Allergies NO KNOWN ALLERGY Allergy (Verified 11/04/17 22:33) Home Medications: Ambulatory Orders Amoxicillin & Pot Clavulanate [Augmentin Tab] 875 mg PO BID #10 tab 11/25/18 Acetaminophen W/ Codeine [Tylenol W/ CODEINE #3] 1 ea PO Q6HRS 4 Days #20 04/08/19 Cyclobenzaprine HCl [Flexeril] 10 mg PO Q6HR 4 Days #20 tab 04/08/19 Albuterol Inhaler [Ventolin Hfa Inhaler] 2 puff INH Q6H PRN #1 inh 02/10/20 Amoxicillin & Pot Clavulanate [Augmentin] 875 mg PO BID #20 tab 02/10/20 Chlorthalidone 25 mg PO DAILY #30 tab 02/10/20 Review of Systems - Review of Systems Constitutional: Denies: chills, fever EENTM: States: nose congestion. Denies: ear pain, throat pain Respiratory: States: cough, short of breath. Denies: wheezing Cardiology: Denies: chest pain, palpitations Gastrointestinal/Abdominal: Denies: abdominal pain, nausea Genitourinary: States: no symptoms reported Musculoskeletal: States: no symptoms reported Skin: States: no symptoms reported Neurological: States: no symptoms reported Endocrine: States: no symptoms reported Hematologic/Lymphatic: States: no symptoms reported All other Systems: Reviewed and Negative Past Medical History (General) - Patient Medical History Hx Seizures: Yes - silent seizures Hx Stroke: No Hx Dementia: No Hx Asthma: No Hx of COPD: No Hx Cardiac Disorders: No Hx Congestive Heart Failure: No Hx Pacemaker: No Hx Hypertension: Yes - during Hx Thyroid Disease: No Hx Diabetes: No Hx Gastroesophageal Reflux: Yes Hx Renal Disease: No Hx Cancer: No Hx of HIV: No Hx Hepatitis C: No Hx MRSA: No Surgical History: other - Vaccination History Hx Tetanus, Diphtheria Vaccination: Yes Hx Influenza Vaccination: No Hx Pneumococcal Vaccination: No Immunizations Up to Date: No - Social History Hx Tobacco Use: Yes Hx Chewing Tobacco Use: No Hx Alcohol Use: No Hx Substance Use: Yes Hx Substance Use Treatment: No Hx Depression: No Feels Threatened In Home Enviroment: No Feels Threatened In a Relationship: No Hx Physical Abuse: No Hx Emotional Abuse: No Hx Suspected Abuse: No - Activities of Daily Living Hospice Agency (if applicable):: None - Female History Patient is a Female of Child Bearing Age (10 -59 yrs old): Yes - had a tubal procedure Hx Last Menstrual Period: 07/16/16 Patient : No Expected Date of Delivery:: 03/26/17 Hx Gestational Age: 34 Family Medical History - Family History Mother Family History: No Known Name: Perfecto Age (years): 45 Living Status: Still Living Hx Family Hypertension: Yes Hx Family;Other: heart problems. smoker Physical Exam - Physical Exam General Appearance: Alert, Obese, Well Hydrated Eyes, Ears, Nose, Throat Exam: PERRL/EOMI, normal ENT inspection, pharynx normal Neck: full range of motion, normal inspection Respiratory: lungs clear, normal breath sounds, no respiratory distress, no accessory muscle use Cardiovascular/Chest: regular rate, rhythm, no murmur Peripheral Pulses: radial,right: 2+, radial,left: 2+ Gastrointestinal/Abdominal: non tender, soft Rectal Exam: deferred Extremity: normal range of motion, normal inspection Neurologic: alert, normal mood/affect Skin Exam: normal color, warm/dry Lymphatic: no adenopathy Progress - Results/Orders Results/Orders: EVEN THOUGH PT HAD A NEG COVID YESTERDAY, I OBTAINED IT TODAY D/T HER HIGH RISK FACTORS: OBESITY, SMOKING, SOB, [employer] WORK[employer], AND GIVEN THE TEST YESTERDAY COULD HAVE BEEN A FALSE NEG. TODAY COVID NEG WELL. FLU NEG. CBC AND CMP UNREMARKABLE, THUS HYPERTENSIVE URGENCY BUT NOT EMERGENCY. CXR = BIBASILAR PNE. APPROPRIATE FOR OUTPT TX, THUS RX AUGMENTIN. GAVE 1ST DOSE IN ER. SOB AND COUGH - FROM PNE. GAVE DUONEBS IN ER. RX'D ALB INHALER. TOBACCO ABUSE: I HAD AN IN-DEPTH DISCUSSION WITH THE PATIENT, ENCOURAGING HER TO STOP SMOKING, SINCE SHE IS YOUNG, STARTED SMOKING ONLY 1 YR AGO, AND SEES THE RAMIFICATIONS SINCE SHE WORKS AT THE [employer]. I EXPLAINED AND WARNED OF DEVELOPING COPD AND CANCER. HTN - IMPROVED IN ER WITH CLONIDINE, FROM 164/116 TO 148/107. RX CHLORTHALIDONE, 30 DAY SUPPLY. WILL REFER TO PERFECTO CLARK TO EST CARE WITH A PCP AND F/U FOR BP MGMT. AFEBRILE, SATS WNL, NO RESPIRATORY DISTRESS, THUS SAFE FOR OUTPT TX OF PNE AND HTN. Departure - Departure Clinical Impression: Hypertensive urgency, Cough, Tobacco abuse Bilateral pneumonia Qualifiers: Pneumonia type: due to unspecified organism Lung location: lower lobe of lung Qualified Code(s): J18.9 - Pneumonia, unspecified organism Dyspnea Qualifiers: Dyspnea type: shortness of breath Qualified Code(s): R06.02 - Shortness of breath; R06.00 - Dyspnea, unspecified; R06.01 - Orthopnea Disposition: Discharge to Home or Self Care Condition: Good Departure Forms: ED Discharge - Pt. Copy, Patient Portal Self Enrollment Instructions: Quitting Smoking, High Blood Pressure (DC) Diet: resume usual diet Activity: increase activity as tolerated Referrals: Perfecto Clark FNP [Family Nurse Practitioner] - 1-2 Weeks Prescriptions: Amoxicillin & Pot Clavulanate [Augmentin] 875 mg PO BID #20 tab Chlorthalidone 25 mg PO DAILY #30 tab Albuterol Inhaler [Ventolin Hfa Inhaler] 2 puff INH Q6H PRN #1 inh PRN Reason: Shortness Of Breath Home Medications: Ambulatory Orders Amoxicillin & Pot Clavulanate [Augmentin Tab] 875 mg PO BID #10 tab 11/25/18 Acetaminophen W/ Codeine [Tylenol W/ CODEINE #3] 1 ea PO Q6HRS 4 Days #20 1 06/09/18 Cyclobenzaprine HCl [Flexeril] 10 mg PO Q6HR 4 Days #20 tab 04/08/19 Albuterol Inhaler [Ventolin Hfa Inhaler] 2 puff INH Q6H PRN #1 inh 02/10/20 Amoxicillin & Pot Clavulanate [Augmentin] 875 mg PO BID #20 tab 02/10/20 Chlorthalidone 25 mg PO DAILY #30 tab 02/10/20
--- NOTE | 2020-02-10 22:53 | RAD ---
EXAM DESCRIPTION: Chest,1 View CLINICAL HISTORY: 29 years Female, SOB, COUGH, CONGESTION COMPARISON: None TECHNIQUE: Single AP chest radiograph. FINDINGS: Patchy bibasilar pulmonary opacities. No pneumothorax or pleural effusion. Normal cardiomediastinal contour. Normal osseous structures. IMPRESSION: 1. Patchy bibasilar pulmonary opacities, nonspecific but concerning for infection. Electronically signed by: Shine Jaquez MD 02/10/2020 10:51 PM CDT
[2020-02-10] MEDS ORDERED: AMOXICILLIN & POT CLAVULANATE 875 MG TAB PO ONE (22:57)
[2020-02-10 23:35] VITALS: BP 115/84; O2SAT 96
== END 2020-02-10 23:35 | disposition home or self-care (01) ==
LOC: ER 21:27
DX: J18.9 Pneumonia, unspecified organism (principal); I16.0 Hypertensive urgency; R06.01 Orthopnea; F17.200 Nicotine dependence, unspecified, uncomplicated; R05 Cough; Z20.828 Contact with and (suspected) exposure to other viral communicable diseases
CPT/HCPCS: 36415; 71045; 80053; 85025; 87502; 87635; 94640; J7620